=== PATIENT | female | born 1980 | race Caucasian/White ===

== ENCOUNTER 2024-07-09 12:38 | Emergency (ER) | payer OTHER ==
[~2024-07-09] VITALS: Ht 152.4 cm; Wt 61.2 kg
[2024-07-09] MEDS: IV NS 0.9% 1,000 ML BAG IV ONE (13:00)
[2024-07-09] MEDS: KETOROLAC TROMETHAMINE 15 MG/ML VIAL IV ONE (13:00)
[2024-07-09 13:03] LABS: BASOPHILS % (AUTO) 0.6 % (0.0-2.0); EOSINOPHILS # (AUTO) 0.1 K/uL (0.0-0.7); EOSINOPHILS % (AUTO) 1.4 % (0.0-6.0); HEMATOCRIT 42 % (33-45); HEMOGLOBIN 14.1 g/dL (11.5-14.8); LYMPHOCYTES # (AUTO) 2.7 K/uL (0.8-4.8); LYMPHOCYTES % (AUTO) 34.2 % (20.0-44.0); MEAN CORPUSCULAR HEMOGLOBIN 31 PG (26.0-33.0); MEAN CORPUSCULAR HGB CONC 34 g/dl (31.0-36.0); MEAN CORPUSCULAR VOLUME 92 fL (82-100); MONOCYTES # (AUTO) 0.4 K/uL (0.1-1.30); MONOCYTES % (AUTO) 5.2 % (2.0-12.0); NEUTROPHILS # (AUTO) 4.6 K/uL (1.8-8.9); NEUTROPHILS % (AUTO) 58.6 % (43.0-81.0); PLATELET COUNT (AUTO) 347 K/uL (150-450); RED BLOOD CELL COUNT(AUTO) 4.51 MIL/uL (4.0-5.2); RED CELL DISTRIBUTION WIDTH 13.5 % (11.5-15.0); WHITE BLOOD COUNT (AUTO) 7.8 K/uL (4.3-11.0)
[2024-07-09 13:08] LABS: APPEARANCE,URINE CLEAR (CLEAR); BILIRUBIN,URINE NEGATIVE (NEGATIVE); BLOOD, URINE NEGATIVE Ery/uL (NEGATIVE); COLOR,URINE YELLOW (YELLOW); KETONES,URINE NEGATIVE (NEGATIVE); LEUKOCYTE ESTERASE ,URINE NEGATIVE (NEGATIVE); NITRITE, URINE NEGATIVE (NEGATIVE); PH,URINE 5.5 (5.0-8.0); PROTEIN,URINE NEGATIVE (NEGATIVE); UGLUCOSE NEGATIVE (NEGATIVE); UROBILINOGEN,URINE 0.2 EU/dL (0.2)
[2024-07-09 13:10] LABS: PREGNANCY TEST URINE QUAL NEGATIVE (NEGATIVE)
[2024-07-09 13:16] LABS: CALCIUM, SERUM 8.8 mg/dL (8.5-10.1); POTASSIUM 3.8 mmol/L (3.5-5.1)
[2024-07-09] MEDS ORDERED: KETOROLAC TROMETHAMINE 15 MG/ML VIAL ONE (13:20)
[2024-07-09 13:22] LABS: ALBUMIN 4.2 g/dL (3.4-5.0); BILIRUBIN,DIRECT 0.1 mg/dL (0.0-0.2); BILIRUBIN,TOTAL 0.4 mg/dL (0.2-1.0); TOTAL PROTEIN, SERUM 7.6 g/dL (6.4-8.2)
[2024-07-09] MEDS ORDERED: LIDO30AD10 TP (14:22)
[2024-07-09] MEDS ORDERED: CYCL5TAB PO (14:22)
[2024-07-09] MEDS ORDERED: IBUP-1955 PO (14:22)
[2024-07-09 14:30] VITALS: BP 121/68; TEMP 98.2; O2SAT 98
== END 2024-07-09 14:30 | disposition home or self-care (01) ==
LOC: ER 12:44
DX: M54.50 Low back pain, unspecified (principal); R30.0 Dysuria; R35.0 Frequency of micturition; F32.A Depression, unspecified; F41.9 Anxiety disorder, unspecified
CPT/HCPCS: 99285; 74176; 96374; 96361; 85025; 80048; 83690; 80076; 84703; 81003; 36415; J1885; J7030

== ENCOUNTER 2024-07-20 12:20 | Emergency (ER) | payer OTHER ==
[~2024-07-20] VITALS: Ht 152.4 cm; Wt 61.2 kg
[~2024-07-20 12:20] MED LIST: CYCL5TAB PO; IBUP-1955 PO; LIDO30AD10 TP
[2024-07-20 12:25] VITALS: BP 135/87; TEMP 98.3; O2SAT 97
[2024-07-20] MEDS ORDERED: HYDR-3972 PO (12:50)
== END 2024-07-20 13:04 | disposition home or self-care (01) ==
LOC: ER 12:20
DX: G89.29 Other chronic pain (principal); M54.50 Low back pain, unspecified; Z79.899 Other long term (current) drug therapy